=== PATIENT | male | born 1970 | race Caucasian/White ===

== ENCOUNTER 2020-01-16 01:50 | Outpatient (CLI) | payer OTHER, SELFPAY ==
[2020-01-16 17:58] LABS: SARS-CoV-2 RNA PCR Negative
== END 2020-01-16 01:51 | disposition home or self-care (01) ==
LOC: ANHCOVIDDT 01:50
PROVIDERS: PCP Family Medicine; Visit Provider Surgery Plastic and Reconstructive Surgery
DX: Z01.812 Encounter for preprocedural laboratory examination (principal); Z20.828 Contact with and (suspected) exposure to other viral communicable diseases
CPT/HCPCS: 87635; C9803; U0003

== ENCOUNTER 2020-01-19 01:08 | Day surgery (SDC) | payer OTHER, SELFPAY ==
[2020-01-04 15:13] VITALS: BMI 31.6
[2020-01-19 08:24] VITALS: BP 153/86; PULSE 98; RESP 16; TEMP 36.6; O2SAT 98
--- NOTE | 2020-01-19 08:28 | WPDHPUPDATE1 ---
History and Physical Update Update Date/Time: 01/19/20 08:28 History and Physical has been reviewed, including an updated exam of the patient. There are NO changes in the patient's condition. Risks, benefits, and alternatives have been discussed and questions answered. Patient agrees to proceed with procedure.
--- NOTE | 2020-01-19 08:46 | WPDANESEPPF ---
Anes - Initial Pre Proc Eval Procedure: Operation Date: 01/19/20 10:00 Proposed Procedures p Excision Mass Right Shoulder - Karlos Fatima MD Date/Time: 01/19/20 08:46 Surgeon: Karlos Fatima MD Pre Op Diagnosis: Right Shoulder Mass Patient Data Age: 49 Gender: M Height: 5 ft 10 in Weight: 100 kg Allergies Allergy/AdvReac Type Severity Reaction Status Date / Time No Known Allergies Allergy Mild Verified 01/04/20 14:07 Home Medications Medication Instructions Recorded Confirmed Type No Home Medications 01/04/20 01/04/20 History Patient hx anesthesia problems: none Family hx anesthesia problems: none PMFSH Past Medical History Medical History Hand pain, right Puncture wound Surgical History Surgical History History of knee surgery Family History Family History Mother Asthma Father Family history of alcoholism Social History Social History Years smoked: 5 Smoking status: Former smoker Second hand tobacco smoke exposure: No Smoking end date: 04/15/93 Alcohol intake: never Substance use: never Substance use type: does not use Last use: 2004 Living arrangements: with family Gender identity (if verbalized by the patient): Male Sexual Orientation (if Verbalized by the Patient): Straight or Heterosexual Spiritual care concerns: No Anes - Eval Final PreProcedure Day of Procedure 01/19/20 08:46 Patient weight: overweight Heart: regular rate and rhythm Lungs: clear to auscultation Airway: Mallampati scale class II Neurological: alert and oriented Last oral intake: >/= 8 hours ASA classification: II Emergent: no Anesthetic plan: proceed Anesthesia type and monitoring: general GIVS and standard monitoring Informed Consent: The patient's anesthetic plan and its attendant risks and benefits were discussed with the patient/family/POA. Questions were solicited and answers provided to the satisfaction of the patient/family/POA.
[2020-01-19] MEDS: LACTATED RINGERS 1,000 ML 30 ML IV CONT (09:00)
[2020-01-19] MEDS: ceFAZolin 2 GM/D5W 50 ML 2 GM/50 ML BAG IVPB (09:37)
[2020-01-19] MEDS: LIDO 1%/EPINEPHRINE 1:100,000 20 ML VIAL 10 ML INFILTRATE (09:53)
--- NOTE | 2020-01-19 10:09 | PM.PROC ---
Procedure Note - Detailed Date of procedure: 01/19/20 Pre-op diagnosis: Right Shoulder Mass Post-op diagnosis: same Procedure performed: 1. Excision of right posterior shoulder mass 10 cm 2. Multilayer closure right posterior shoulder 10 cm Description of procedure: Patient was marked in the preoperative holding area with his verification. He was taken to the operating room placed supine on the operating room table. Anesthesia was provided by anesthesiology and prepped and draped in standard sterile fashion. Patient was in the lateral decubitus position. 1% lidocaine with epinephrine was used anesthetize locally. Fifteen blade used to make an incision over the mass and dissection was continued down. I was able to completely remove this and said the appearance of a lipoma. We did descend pathology. I closed in many layers to obliterate all space using 2-0 Vicryl deep followed by 3-0 Monocryl in a running subcuticular 4-0 Monocryl and tissue glue. That length of closure was 10 cm. He tolerated well. Taken to PACU without difficulty. All instrument sponge counts were correct at the end of the case. Anesthesia: MAC Surgeon: Karlos Fatima MD Estimated blood loss (mL): 5 Drains: No Packing: No Pathology: yes (Lipoma) Complications: No immediate complications Condition: stable Disposition: PACU Findings: appearance of lipoma
[2020-01-19 10:22] VITALS: BP 111/69; PULSE 81; RESP 20; O2SAT 97
[2020-01-19 10:52] VITALS: BP 128/65; PULSE 71; RESP 14
[2020-01-19 11:05] VITALS: BP 110/71; PULSE 75; RESP 14
== END 2020-01-19 11:10 | disposition home or self-care (01) ==
PROVIDERS: PCP Family Medicine; Visit Provider Surgery Plastic and Reconstructive Surgery
PROC: (CPT 24071; principal; 2020-01-19 10:00)
DX: D17.21 Benign lipomatous neoplasm of skin and subcutaneous tissue of right arm (principal)
CPT/HCPCS: 24071; 88304; J0690; J1100; J2250; J2405; J2704; J3010; J7120